=== PATIENT | male | born 1980 | race Two or more races ===

== ENCOUNTER 2017-10-05 19:43 | Emergency (ER) | payer OTHER ==
[2017-10-05] MEDS ORDERED: ACETAMINOPHEN 325 MG TABLET PO ONE (20:02)
--- NOTE | 2017-10-05 20:04 | ER Document Report ---
ED Medical Screen (RME) - General Chief Complaint: Eye Pain Stated Complaint: EYE ISSUE Time Seen by Provider: 10/05/17 19:58 Notes: RAPID MEDICAL EVALUATION DISCLOSURE I have seen this patient as part of a Rapid Medical Evaluation and, if applicable, placed any initially appropriate orders. The patient will be seen and fully evaluated, including a full history and physical exam, by a provider ( in Main ED or Fast Track) when a room becomes available. 37-year-old male here with complaints of right eye pain redness and watering that started approximately 5 hours ago. He was breaking up concrete with a sledgehammer and had just taken off his protective eyewear since it was dirty and he was unable to see. Immediately after breaking up the concrete, he felt a piece of concrete fly into his eye and since then the symptoms have been progressively worsening. He tried flushing out his eye with a bottle of water with minimal relief. He has not taken anything for the pain. EXAM Right conjunctival injection with clear watery discharge Pupils equal and reactive TRAVEL OUTSIDE OF THE [place] IN LAST 30 DAYS: No Physical Exam - Vital signs Vitals: Temp Pulse Resp BP Pulse Ox 98.1 F 79 18 161/78 H 100 10/05/17 19:43 10/05/17 19:43 10/05/17 19:43 10/05/17 19:43 10/05/17 19:43 Course - Vital Signs Vital signs: Temp Pulse Resp BP Pulse Ox 98.1 F 79 18 161/78 H 100 10/05/17 19:43 10/05/17 19:43 10/05/17 19:43 10/05/17 19:43 10/05/17 19:43
[2017-10-05] MEDS ORDERED: TETRACAINE HCL 0.5% OPH SOLN 2 ML OD ONE (21:36)
[2017-10-05] MEDS ORDERED: CIPROFLOXACIN HCL 0.3% OPH SOLN 2.5 ML OD ONE (21:50)
--- NOTE | 2017-10-05 21:51 | ER Document Report ---
ED General - General Chief Complaint: Eye Pain Stated Complaint: EYE ISSUE Time Seen by Provider: 10/05/17 19:58 Mode of Arrival: Ambulatory Information source: Patient Notes: 37-year-old male presents with right eye injury. Patient notes he was hammering concrete and had just taken his eyeglasses off because they are getting foggy and a foreign body went into his eye. Patient notes initially he did not feel much pain since then symptoms have worsened Tetanus is up-to-date per patient Patient speaks fluent Indonesian TRAVEL OUTSIDE OF THE [place] IN LAST 30 DAYS: No - HPI Onset: Just prior to arrival Onset/Duration: Sudden Quality of pain: Sharp Severity: Mild Pain Level: 2 Associated symptoms: Other Exacerbated by: Other Relieved by: Denies Similar symptoms previously: No Recently seen / treated by doctor: No Past Medical History - Social History Smoking Status: Never Smoker Cigarette use (# per day): No Chew tobacco use (# tins/day): No Smoking Education Provided: No Family History: Reviewed & Not Pertinent Patient has suicidal ideation: No Patient has homicidal ideation: No Renal/ Medical History: Denies: Hx Peritoneal Dialysis Review of Systems - Review of Systems Notes: REVIEW OF SYSTEMS: CONSTITUTIONAL : Denies fever, chills, or sweats. Denies recent illness. EENT: Admits to right eye pain CARDIOVASCULAR: Denies chest pain. Denies palpitations or racing or irregular heart beat. Denies ankle edema. RESPIRATORY: Denies cough, cold, or chest congestion. Denies shortness of breath, difficulty breathing, or wheezing. GASTROINTESTINAL: Denies abdominal pain or distention. Denies nausea, vomiting , or diarrhea. Denies blood in vomitus, stools, or per rectum. Denies black, tarry stools. Denies constipation. GENITOURINARY: Denies difficulty urinating, painful urination, burning, frequency, blood in urine, or discharge. MUSCULOSKELETAL: Denies back or neck pain or stiffness. Denies joint pain or swelling. SKIN: Denies rash, lesions or sores. HEMATOLOGIC : Denies easy bruising or bleeding. LYMPHATIC: Denies swollen, enlarged glands. NEUROLOGICAL: Denies confusion or altered mental status. Denies passing out or loss of consciousness. Denies dizziness or lightheadedness. Denies headache. Denies weakness or paralysis or loss of use of either side. Denies problems with gait or speech. Denies sensory loss, numbness, or tingling. Denies seizures. PSYCHIATRIC: Denies anxiety or stress. Denies depression, suicidal ideation, or homicidal ideation. ALL OTHER SYSTEMS REVIEWED AND NEGATIVE. Dictation was performed using [employer] voice recognition software PHYSICAL EXAMINATION: GENERAL: Well-appearing, well-nourished and in no acute distress. HEAD: Atraumatic, normocephalic. EYES: 3 foreign bodys removed the the upper and lower eye lid of the right eye. large corneal abrasion across the 3-9 o clock region. seen under flourescein ENT: Nares patent, oropharynx clear without exudates. Moist mucous membranes. NECK: Normal range of motion, supple without lymphadenopathy LUNGS: Breath sounds clear to auscultation bilaterally and equal. No wheezes rales or rhonchi. HEART: Regular rate and rhythm without murmurs ABDOMEN: Soft, nontender, nondistended abdomen. No guarding, no rebound. No masses appreciated. Musculoskeletal: Normal range of motion, no pitting or edema. No cyanosis. NEUROLOGICAL: Cranial nerves grossly intact. Normal speech, normal gait. Normal sensory, motor exams PSYCH: Normal mood, normal affect. SKIN: Warm, Dry, normal turgor, no rashes or lesions noted. Physical Exam - Vital signs Vitals: Temp Pulse Resp BP Pulse Ox 98.1 F 79 18 161/78 H 100 10/05/17 19:43 10/05/17 19:43 10/05/17 19:43 10/05/17 19:43 10/05/17 19:43 - HEENT Visual acuity- Right eye: 20/30 Visual acuity- Left eye: 20/25 Visual acuity- Both eyes: 20/20 Corrective lenses worn: No Course - Re-evaluation Re-evalutation: 10/06/17 09:15 Patient's eye was irrigated extensively, his tetanus is up-to-date, he was given pain control and Ciprodex drops, he does not wear contacts, I have very high suspicion for visual damage as a result of this injury, patient must be seen by ophthalmology tomorrow for reevaluation patient states he understands and will do some My After performing a Medical Screening Examination, I estimate there is LOW risk for a RETAINED CORNEAL or LID FOREIGN BODY, DEEP SPACE INFECTION (e.g., ORBITAL CELLULITIS OR ABSCESS), ACUTE GLAUCOMA, PENETRATING GLOBE INJURY, RETINAL DETACHMENT, or MENINGITIS thus I consider the discharge disposition reasonable. I have reevaluated this patient multiple times and no significant life threatening changes are noted. Also, there is no evidence or peritonitis, sepsis, or toxicity. The patient and I have discussed the diagnosis and risks, and we agree with discharging home with outpatient follow-up with the understanding that symptoms and presentations can change. We also discussed returning to the Emergency Department immediately if new or worsening symptoms occur. We have discussed the symptoms which are most concerning (e.g., changing or worsening pain, vision changes, neck stiffness or fever) that necessitate immediate return. - Vital Signs Vital signs: Temp Pulse Resp BP Pulse Ox 98.3 F 69 16 142/87 H 99 10/05/17 22:06 10/05/17 22:06 10/05/17 22:06 10/05/17 22:06 10/05/17 22:06 Discharge - Discharge Clinical Impression: Corneal abrasion, right Qualifiers: Encounter type: initial encounter Qualified Code(s): S05.01XA - Injury of conjunctiva and corneal abrasion without foreign body, right eye, initial encounter Condition: Stable Disposition: HOME, SELF-CARE Instructions: Corneal Abrasion ([facility]) Additional Instructions: Follow up with your physician tomorrow for further care or return to the ED IMMEDIATELY if symptoms worsen or new concerns occur. If you cannot afford to follow up with your primary care physician a list of low cost clinics have been provided at the end of your discharge papers as well. Prescriptions: Hydrocodone/Acetaminophen [Ward 5-325 mg Tablet] 1 tab PO Q6 #10 tablet Referrals: TC MENJIVAR MD [ACTIVE STAFF] - 10/06/17
[2017-10-05 22:08] VITALS: BP 142/87
== END 2017-10-05 22:06 | disposition home or self-care (01) ==
LOC: ER 19:43
DX: S05.01XA Injury of conjunctiva and corneal abrasion without foreign body, right eye, initial encounter (principal); W22.8XXA Striking against or struck by other objects, initial encounter; Y93.H3 Activity, building and construction; Y99.0 Civilian activity done for income or pay
CPT/HCPCS: 99283; J3490